=== PATIENT | male | born 1990 | race African-American/Black ===

== ENCOUNTER 2020-06-07 09:51 | Emergency (ER) | payer BC ==
[~2020-06-07] VITALS: Ht 185.4 cm; Wt 74.8 kg
--- NOTE | 2020-06-07 09:55 | NUR ---
pt not in waiting room.
--- NOTE | 2020-06-07 09:59 | NUR ---
was told by registeration pt was outside smoking
--- NOTE | 2020-06-07 10:29 | Emergency Department Note ---
History of Present Illnes History of Present Illness Chief Complaint: General Medicine Complaints History of Present Illness This is a 29 year old male AAM no PMH c/o back and muscle cramp for few days after being out in the heat working, feels congested for 2 months, no f/c no sob, no cough. 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 Pt went out to smoke while waiting for paper work, in [employer] . Historian: Patient Arrival Mode: Car Staffing Rn Required: No Onset (how long ago): day(s) Radiation: Reports back, Reports extremity Severity: mild Onset quality: gradual Duration (how long): day(s) Timing of current episode: intermittent Relieving factors: none Exacerbating factors: none Treatments prior to arrival: none Past Medical/Family History Physician Review I have reviewed the patient's past medical and family history. Any updates have been documented here. Past Medical History Recent Fever: No Clinical Suspicion of Infectio: No New/Unexplained Change in Ment: No Past Medical History: None Past Surgical History: None Social History Smoking Cessation: Current every day smoker Counseling Performed: No Alcohol Use: Occasional Any Illegal Drug Use: No Physically hurt or threatened: No Other Any Pre-Existing Lines (PICC,: No Review of Systems Review of Systems Constitutional: Reports no symptoms EENTM: Reports no symptoms Cardiovascular: Reports no symptoms Respiratory: Reports chest congestion Gastrointestinal: Reports no symptoms Genitourinary: Reports no symptoms Musculoskeletal: Reports back pain, Reports muscle pain Integumentary: Reports no symptoms Neurological: Reports no symptoms Psychological: Reports no symptoms Endocrine: Reports no symptoms Hematological/Lymphatic: Reports no symptoms Physical Exam Related Data Allergies: Coded Allergies: No Known Allergies (Unverified , 06/07/20) Triage Vital Signs Vital Signs Date Time Temp Pulse Resp B/P (MAP) Pulse Ox O2 Delivery O2 Flow Rate FiO2 06/07/20 10:03 99.2 87 18 126/69 99 Vital signs reviewed: Yes Physical Exam CONSTITUTIONAL Constitutional: Present well-developed, Present well-nourished HENT HENT: Present normocephalic, Present atraumatic, Present oropharynx clear/moist, Present nose normal HENT L/R: Present left ext ear normal, Present right ext ear normal EYES Eyes: Reports PERRL, Reports conjunctivae normal NECK Neck: Present ROM normal PULMONARY Pulmonary: Present effort normal, Present breath sounds normal CARDIOVASCULAR Cardiovascular: Present regular rhythm, Present heart sounds normal, Present capillary refill normal, Present normal rate GASTROINTESTINAL Abdominal: Present soft, Present nontender, Present bowel sounds normal GENITOURINARY Genitourinary: Present exam deferred SKIN Skin: Present warm, Present dry MUSCULOSKELETAL Musculoskeletal: Present ROM normal NEUROLOGICAL Neurological: Present alert, Present oriented x 3, Present no gross motor or sensory deficits PSYCHOLOGICAL Psychological: Present mood/affect normal, Present judgement normal Assessment & Plan Medical Decision Making MDM heat cramp Reassessment Reassessment went out smoking in [place] Assessment & Plan Final Impression: (1) Congestion of respiratory tract (2) Heat cramp, initial encounter Depart Disposition: HOME, SELF-CARE Last Vital Signs Date Time Temp Pulse Resp B/P (MAP) Pulse Ox O2 Delivery O2 Flow Rate FiO2 06/07/20 10:03 99.2 87 18 126/69 99 Physician Attestation Provider Attestation well looking patient, rec him to f/u with PCP for wellness exam yearly. DEAN LIZ MD Jun 07, 2020 10:29
== END 2020-06-07 10:23 | disposition home or self-care (01) ==
LOC: FSED 10:21
DX: R09.89 Other specified symptoms and signs involving the circulatory and respiratory systems (principal); T67.2XXA Heat cramp, initial encounter; F17.210 Nicotine dependence, cigarettes, uncomplicated
CPT/HCPCS: 99282